=== PATIENT | female | born 2000 | race Caucasian/White ===

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

== ENCOUNTER 2018-12-04 17:35 | Emergency (ER) | payer SELFPAY ==
[~2018-12-04] VITALS: Ht 157.5 cm; Wt 72.6 kg
--- NOTE | 2018-12-04 17:57 | ED General ---
General Chief Complaint: Abdominal/GI Problems Stated Complaint: N/V/D Nursing Triage Note: pt presents with c/o n/v/d x 2 days. pt works at [employer] and reports working with pts who have had the stomach flu. pt hasn't been able to keep anything down since saturday evening. Nursing Sepsis Screen: No Definite Risk Source of Information: Patient Exam Limitations: No Limitations History of Present Illness Date Seen by Provider: Dec 04, 2018 Time Seen by Provider: 17:57 Initial Comments To ER per private vehicle with reports of nausea vomiting diarrhea body aches cough and rhinorrhea since last night. No fevers she has had chills. Timing/Duration: 1-2 Days Severity: Moderate Modifying Factors: improves with Medication Allergies and Home Medications Allergies Coded Allergies: No Known Drug Allergies (Unverified , 11/16/10) Home Medications Ibuprofen 600 Mg Tablet, 600 MG PO Q6H Prescribed by: MALIKA JOSEPH on 11/15/17 1415 Ondansetron 8 Mg Tab.rapdis, 8 MG PO Q6H PRN for NAUSEA/VOMITING Prescribed by: ADRIANA LYNNE on 12/04/18 1830 Vit #76/Iron,Carb/FA 1 Each Tablet, 1 EACH PO DAILY, (Reported) Patient Home Medication List Home Medication List Reviewed: Yes Review of Systems Review of Systems Constitutional: see HPI, chills, malaise EENTM: nose congestion Respiratory: see HPI, cough Cardiovascular: no symptoms reported Gastrointestinal: diarrhea, nausea, vomiting Genitourinary: no symptoms reported Musculoskeletal: no symptoms reported Skin: no symptoms reported Psychiatric/Neurological: No Symptoms Reported Hematologic/Lymphatic: No Symptoms Reported Past Zmouqwi-Ltzmju-Nfuvwo Hx Patient Social History Alcohol Use: Denies Use Recreational Drug Use: No Smoking Status: Current Everyday Smoker Type Used: Cigarettes Recent Foreign Travel: No Contact w/Someone Who Travel: No Recent Infectious Disease Expo: Yes Recent Hopitalizations: No Immunizations Up To Date Tetanus Booster (TDap): Less than 5yrs PED Vaccines UTD: Yes Date of Influenza Vaccine: Aug 28, 2017 Seasonal Allergies Seasonal Allergies: No Past Medical History Surgeries: No Respiratory: No Cardiac: No Neurological: No Reproductive Disorders: Yes (menstrual problems) Female 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 Sexually Transmitted Disease: No HIV/AIDS: No Genitourinary: No UTI (peds) Gastrointestinal: No Musculoskeletal: No Endocrine: No HEENT: No Cancer: No Psychosocial: Yes Anxiety, Depression Integumentary: No Blood Disorders: No Adverse Reaction/Blood Tranf: No Family Medical History Cancer of mouth 19 MOTHER (CERVICAL CANCER, RETINAL BLASTOMA) FH: ADHD (attention deficit hyperactivity disorder) G8 SISTER Hypercholesterolemia G8 BROTHER Hypertension G8 BROTHER No Pertinent Family Hx Physical Exam Vital Signs Vital Signs - First Documented 12/04/18 17:44 Temp 97.9 Pulse 84 Resp 18 B/P (MAP) 119/69 (86) Pulse Ox 98 O2 Delivery Room Air Capillary Refill : Less Than 3 Seconds Height, Weight, BMI Height: 5'2.00" Weight: 160lbs. 0.0oz. [id number]; 37.0 BMI Method:Stated General Appearance: No Apparent Distress, WD/WN Eyes: Bilateral Eye Normal Inspection, Bilateral Eye PERRL, Bilateral Eye EOMI HEENT: PERRL/EOMI, TMs Normal Neck: Full Range of Motion, Normal Inspection Respiratory: Normal Breath Sounds, No Accessory Muscle Use, No Respiratory Distress Cardiovascular: Regular Rate, Rhythm, Normal Peripheral Pulses Gastrointestinal: Normal Bowel Sounds, Non Tender, Soft Extremity: Normal Capillary Refill, Normal Inspection Neurologic/Psychiatric: Alert, Oriented x3 Skin: Normal Color, Warm/Dry Progress/Results/Core Measures Suspected Sepsis Recent Fever Within 48 Hours: No Infection Criteria Present: Suspected New Infection New/Unexplained Altered Menta: No Sepsis Screen: No Definite Risk SIRS Temperature:97.9 Pulse: 84 Respiratory Rate: 18 Laboratory Tests 12/04/18 18:00: White Blood Count 11.9H Blood Pressure 119 /69 Mean: 86 Laboratory Tests 12/04/18 18:00: Creatinine 0.83, Platelet Count 229, Total Bilirubin 0.4 Results/Orders Lab Results Laboratory Tests Test 12/04/18 18:00 12/04/18 18:05 Range/Units White Blood Count 11.9 H 4.3-11.0 10^3/uL Red Blood Count 4.75 4.35-5.85 10^6/uL Hemoglobin 13.8 11.5-16.0 G/DL Hematocrit 41 35-52 % Mean Corpuscular Volume 87 80-99 FL Mean Corpuscular Hemoglobin 29 25-34 PG Mean Corpuscular Hemoglobin Concent 34 32-36 G/DL Red Cell Distribution Width 14.7 H 10.0-14.5 % Platelet Count 229 130-400 10^3/uL Mean Platelet Volume 12.3 H 7.4-10.4 FL Neutrophils (%) (Auto) 72 42-75 % Lymphocytes (%) (Auto) 20 12-44 % Monocytes (%) (Auto) 6 0-12 % Eosinophils (%) (Auto) 2 0-10 % Basophils (%) (Auto) 0 0-10 % Neutrophils # (Auto) 8.5 H 1.8-7.8 X 10^3 Lymphocytes # (Auto) 2.4 1.0-4.0 X 10^3 Monocytes # (Auto) 0.7 0.0-1.0 X 10^3 Eosinophils # (Auto) 0.2 0.0-0.3 10^3/uL Basophils # (Auto) 0.0 0.0-0.1 10^3/uL Sodium Level 141 135-145 MMOL/L Potassium Level 4.0 3.6-5.0 MMOL/L Chloride Level 108 H 98-107 MMOL/L Carbon Dioxide Level 21 21-32 MMOL/L Anion Gap 12 5-14 MMOL/L Blood Urea Nitrogen 11 7-18 MG/DL Creatinine 0.83 0.60-1.30 MG/DL Estimat Glomerular Filtration Rate > 60 BUN/Creatinine Ratio 13 Glucose Level 86 70-105 MG/DL Calcium Level 9.4 8.5-10.1 MG/DL Corrected Calcium 9.2 8.5-10.1 MG/DL Total Bilirubin 0.4 0.1-1.0 MG/DL Aspartate Amino Transf (AST/SGOT) 22 5-34 U/L Alanine Aminotransferase (ALT/SGPT) 24 0-55 U/L Alkaline Phosphatase 92 40-136 U/L Total Protein 7.2 6.4-8.2 GM/DL Albumin 4.3 3.2-4.5 GM/DL Lipase 29 8-78 U/L Serum Test, Qualitative NEGATIVE NEGATIVE Urine Color YELLOW Urine Clarity CLEAR Urine pH 7 5-9 Urine Specific [place] 1.010 L 1.016-1.022 Urine Protein 1+ H NEGATIVE Urine Glucose (UA) NEGATIVE NEGATIVE Urine Ketones NEGATIVE NEGATIVE Urine Nitrite NEGATIVE NEGATIVE Urine Bilirubin NEGATIVE NEGATIVE Urine Urobilinogen NORMAL NORMAL MG/DL Urine Leukocyte Esterase 2+ H NEGATIVE Urine RBC (Auto) NEGATIVE NEGATIVE Urine RBC NONE /HPF Urine WBC 2-5 /HPF Urine Squamous Epithelial Cells 10-25 H /HPF Urine Crystals NONE /LPF Urine Bacteria MODERATE H /HPF Urine Casts NONE /LPF Urine Mucus MODERATE H /LPF Urine Culture Indicated YES Micro Results Microbiology 12/04/18 Influenza Types A,B Antigen ([facility]) - Final, Complete My Orders Orders - ADRIANA LYNNE DEV MANAGER Cbc With Automated Diff (12/04/18 17:55) Comprehensive Metabolic Panel (12/04/18 17:55) Lipase (12/04/18 17:55) Ua Culture If Indicated (12/04/18 17:55) Hcg,Qualitative Serum (12/04/18 17:55) Iv Heplock-Insert (Order) (12/04/18 17:55) Ondansetron Injection (Zofran Injectio (12/04/18 18:00) Hyoscyamine Sl Tablet (Levsin Sl Tablet) (12/04/18 18:00) Lactated Ringers (Lr 1000 Ml Iv Solution (12/04/18 18:00) Influenza A And B Antigens (12/04/18 17:56) Urine Culture (12/04/18 18:05) Medications Given in ED Current Medications Medications Dose Ordered Sig/Riya Route Start Time Stop Time Status Last Admin Dose Admin Hyoscyamine Sulfate 0.25 mg ONCE ONCE PO 12/04/18 18:00 12/04/18 18:01 DC 12/04/18 18:07 0.25 MG Ondansetron HCl 8 mg ONCE ONCE IVP 12/04/18 18:00 12/04/18 18:01 DC 12/04/18 18:11 8 MG Vital Signs/I&O 12/04/18 12/04/18 17:44 19:00 Temp 97.9 97.9 Pulse 84 82 Resp 18 18 B/P (MAP) 119/69 (86) 107/62 (77) Pulse Ox 98 98 O2 Delivery Room Air Room Air Capillary Refill : Less Than 3 Seconds Blood Pressure Mean: 86 Departure Impression Primary Impression: Viral syndrome Disposition: 01 HOME, SELF-CARE Condition: Stable Departure-Patient Inst. Decision time for Depature: 18:28 Referrals: MALIKA JOSEPH MD (PCP/Family) Primary Care Physician Patient Instructions: VIRAL SYNDROME Add. Discharge Instructions: All discharge instructions reviewed with patient and/or family. Voiced understanding. 1. Return to ER for any concerns or worsening 2. Clear liquids only for the next 24 hours. Nausea medication as directed. You may use [id number] Imodium to help control diarrhea. Follow-up with your doctor within 48 hours for recheck. Scripts Ondansetron (Ondansetron Odt) 8 Mg Tab.rapdis 8 MG PO Q6H PRN for NAUSEA/VOMITING, #14 TAB Prov: ADRIANA LYNNE APRN 12/04/18 Work/School Note: Work Release Form Date Seen in the Emergency Department: Dec 04, 2018 Return to Work: Dec 06, 2018 ADRIANA LYNNE APRN Dec 04, 2018 17:57
[2018-12-04] MEDS ORDERED: HYOSCYAMINE 0.125 MG (LEVSIN) TAB PO ONE (18:00)
[2018-12-04] MEDS ORDERED: ONDANSETRON 4 MG/2 ML (SDV) Z0FRAN IVP ONE (18:00)
[2018-12-04] MEDS ORDERED: LACTATED RINGERS 1,000 ML IV SCH (18:00)
[2018-12-04 18:05] LABS: BASOPHILS % (AUTO) 0 % (0-10); EOSINOPHILS # (AUTO) 0.2 10^3/uL (0.0-0.3); EOSINOPHILS % (AUTO) 2 % (0-10); HEMATOCRIT 41 % (35-52); HEMOGLOBIN 13.8 G/DL (11.5-16.0); LYMPHOCYTES # (AUTO) 2.4 X 10^3 (1.0-4.0); LYMPHOCYTES % (AUTO) 20 % (12-44); MEAN CORPUSCULAR HEMOGLOBIN 29 PG (25-34); MEAN CORPUSCULAR HGB CONC 34 G/DL (32-36); MEAN CORPUSCULAR VOLUME 87 FL (80-99); MEAN PLATELET VOLUME 12.3 FL (7.4-10.4); MONOCYTES # (AUTO) 0.7 X 10^3 (0.0-1.0); MONOCYTES % (AUTO) 6 % (0-12); NEUTROPHILS # (AUTO) 8.5 X 10^3 (1.8-7.8); NEUTROPHILS % (AUTO) 72 % (42-75); PLATELET COUNT 229 10^3/uL (130-400); RED CELL DISTRIBUTION WIDTH 14.7 % (10.0-14.5); WHITE BLOOD COUNT 11.9 10^3/uL (4.3-11.0)
[2018-12-04 18:14] LABS: BILIRUBIN,URINE NEGATIVE (NEGATIVE); CLARITY,URINE CLEAR; COLOR,URINE YELLOW; GLUCOSE, URINE (UA) NEGATIVE (NEGATIVE); KETONES,URINE NEGATIVE (NEGATIVE); LEUKOCYTE ESTERASE ,URINE 2+ (NEGATIVE); NITRITE,URINE NEGATIVE (NEGATIVE); PH,URINE 7 (5-9); PROTEIN,URINE 1+ (NEGATIVE); UROBILINOGEN,URINE NORMAL (NORMAL)
[2018-12-04 18:25] LABS: ALANINE AMINOTRANSFERASE 24 U/L (0-55); ALBUMIN 4.3 GM/DL (3.2-4.5); ALKALINE PHOSPHATASE 92 U/L (40-136); BILIRUBIN,TOTAL 0.4 MG/DL (0.1-1.0); BUN/CREATININE RATIO 13; CALCIUM 9.4 MG/DL (8.5-10.1); CARBON DIOXIDE 21 MMOL/L (21-32); CHLORIDE 108 MMOL/L (98-107); CREATININE SERUM 0.83 MG/DL (0.60-1.30); GFR ESTIMATED > 60; GLUCOSE 86 MG/DL (70-105); LIPASE 29 U/L (8-78); SODIUM 141 MMOL/L (135-145); TOTAL PROTEIN 7.2 GM/DL (6.4-8.2)
[2018-12-04 18:29] LABS: BACTERIA,URINE MODERATE /HPF
[2018-12-04] MEDS ORDERED: ONDA8TAB13 PO (18:30)
[2018-12-04 19:00] VITALS: BP 107/62
== END 2018-12-04 19:00 | disposition home or self-care (01) ==
LOC: EDUNIT# 17:35 → ER 17:36
DX: B34.9 Viral infection, unspecified (principal); F41.9 Anxiety disorder, unspecified; F32.9 Major depressive disorder, single episode, unspecified; F17.210 Nicotine dependence, cigarettes, uncomplicated; Z97.5 Presence of (intrauterine) contraceptive device; Z80.49 Family history of malignant neoplasm of other genital organs; Z82.49 Family history of ischemic heart disease and other diseases of the circulatory system; Z87.440 Personal history of urinary (tract) infections
CPT/HCPCS: 36415; 80053; 81000; 83690; 84703; 85025; 87088; 87804

== ENCOUNTER 2020-01-14 12:31 | Emergency (ER) | payer SELFPAY ==
[~2020-01-14] VITALS: Ht 155 cm; Wt 77.2 kg
[~2020-01-14 12:31] MED LIST changes: +ONDA8TAB13 PO
[2020-01-14] MEDS ORDERED: ONDANSETRON 4 MG (ZOFRAN) ORAL DISSOLVE TAB PO STA (12:51)
--- NOTE | 2020-01-14 12:54 | ED Cough/URI ---
General Chief Complaint: Cough/Cold/Flu Symptoms Stated Complaint: SOA;HEAD PAIN;COUGH Nursing Triage Note: having SOB and cough, nauseated, headache Sepsis Screen: No Definite Risk Source: patient Exam Limitations: no limitations History of Present Illness Date Seen by Provider: Jan 14, 2020 Time Seen by Provider: 12:53 Initial Comments To ER with shortness of breath and cough nausea and headaches that began 2 days ago. No fevers have been measured. She is afebrile here despite no use of antipyretics today. Her last dose was ibuprofen and that was yesterday. She did travel to [facility] 4 days ago. Timing/Duration: constant Severity/Quality: moderate Associated Symptoms: cough Allergies and Home Medications Allergies Coded Allergies: No Known Drug Allergies (Unverified , 11/16/10) Home Medications Ibuprofen 600 Mg Tablet, 600 MG PO Q6H Prescribed by: MALIKA JOSEPH on 11/15/17 1415 Ondansetron 8 Mg Tab.rapdis, 8 MG PO Q6H PRN for NAUSEA/VOMITING Prescribed by: ADRIANA LYNNE on 12/04/18 1830 Vit #76/Iron,Carb/FA 1 Each Tablet, 1 EACH PO DAILY, (Reported) Patient Home Medication List Home Medication List Reviewed: Yes Review of Systems Review of Systems Constitutional: see HPI; No fever EENTM: see HPI Respiratory: see HPI, cough Cardiovascular: no symptoms reported Gastrointestinal: nausea Genitourinary: no symptoms reported Psychiatric/Neurological: See HPI, Headache Hematologic/Lymphatic: No Symptoms Reported Past Ikgourt-Yfeaut-Lqumkh Hx Patient Social History Alcohol Use: Denies Use Recreational Drug Use: No Smoking Status: Current Everyday Smoker Type Used: Cigarettes 2nd Hand Smoke Exposure: Yes Recent Foreign Travel: No Contact w/Someone Who Travel: No Recent Infectious Disease Expo: No Recent Hopitalizations: No Immunizations Up To Date Tetanus Booster (TDap): Less than 5yrs PED Vaccines UTD: Yes Date of Influenza Vaccine: Aug 28, 2017 Seasonal Allergies Seasonal Allergies: No Past Medical History Surgeries: No Respiratory: No Cardiac: No Neurological: No Reproductive Disorders: Yes (menstrual problems) Female 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 Sexually Transmitted Disease: No HIV/AIDS: No Genitourinary: No UTI (peds) Gastrointestinal: No Musculoskeletal: No Endocrine: No HEENT: No Cancer: No Psychosocial: Yes Anxiety, Depression Integumentary: No Blood Disorders: No Adverse Reaction/Blood Tranf: No Family Medical History Cancer of mouth 19 MOTHER (CERVICAL CANCER, RETINAL BLASTOMA) FH: ADHD (attention deficit hyperactivity disorder) G8 SISTER Hypercholesterolemia G8 BROTHER Hypertension G8 BROTHER No Pertinent Family Hx Physical Exam Vital Signs - First Documented 01/14/20 12:38 Temp 36.7 Pulse 96 Resp 18 B/P (MAP) 112/70 (84) Capillary Refill : Less Than 3 Seconds Height: 5'2.00" Weight: 160lbs. 0.0oz. 72.588154en; 32.00 BMI Method:Stated General Appearance: WD/WN, no apparent distress Eyes: Bilateral Eye Normal Inspection, Bilateral Eye PERRL, Bilateral Eye EOMI HEENT: PERRL/EOMI, normal ENT inspection Neck: non-tender, full range of motion Respiratory: normal breath sounds, no respiratory distress, no accessory muscle use; No wheezing, No expiration Gastrointestinal: normal bowel sounds, non tender, soft Neurologic/Psychiatric: alert, normal mood/affect, oriented x 3 Skin: normal color, warm/dry Progress/Results/Core Measures Suspected Sepsis Recent Fever Within 48 Hours: No Infection Criteria Present: None New/Unexplained Altered Menta: No Sepsis Screen: No Definite Risk SIRS Temperature: Pulse: 96 Respiratory Rate: 18 Blood Pressure 112 /70 Mean: 84 Results/Orders Lab Results Laboratory Tests Test 01/14/20 13:03 Range/Units Group A Streptococcus Screen NEGATIVE NEGATIVE Micro Results Microbiology 01/14/20 Influenza Types A,B Antigen ([facility]) - Final, Complete My Orders Orders - ADRIANA LYNNE APRN Influenza A And B Antigens (01/14/20 12:51) Rapid Strep A Screen (01/14/20 12:51) Butalbital/Apap/Caffeine Tab (Fioricet T (01/14/20 13:00) Ondansetron Oral Dissolve Tab (Zofran (01/14/20 12:51) Medications Given in ED Current Medications Medications Dose Ordered Sig/Riya Route Start Time Stop Time Status Last Admin Dose Admin Acetaminophen/ Butalbital/ Caffeine 1 tab ONCE PRN PO 01/14/20 13:00 01/14/20 13:04 1 TAB Vital Signs/I&O 01/14/20 12:38 Temp 36.7 Pulse 96 Resp 18 B/P (MAP) 112/70 (84) Capillary Refill : Less Than 3 Seconds Blood Pressure Mean: 84 Departure Communication (Admissions) She does not have a fever despite no use of antipyretics. Impression Primary Impression: Viral syndrome Additional Impression: Headache Qualified Codes: R51 - Headache Disposition: 01 HOME, SELF-CARE Condition: Stable Departure-Patient Inst. Decision time for Depature: 13:21 Referrals: MALIKA JOSEPH MD (PCP/Family) Primary Care Physician Patient Instructions: VIRAL SYNDROME Add. Discharge Instructions: 1. Tylenol for either control 2. You should go home and quarantine AT HOME for 14 days away from others. All discharge instructions reviewed with patient and/or family. Voiced understanding. Work/School Note: Work Release Form Date Seen in the Emergency Department: Jan 14, 2020 Return to Work: Jan 26, 2020 ADRIANA LYNNE APRN Jan 14, 2020 12:54
[2020-01-14] MEDS ORDERED: ACET/BUTAL/CAFF (FIORICET) TAB PO PRN (13:00)
[2020-01-14 13:44] VITALS: BP 114/71
== END 2020-01-14 13:44 | disposition home or self-care (01) ==
LOC: EDUNIT# 12:31 → ER 12:32
DX: B34.9 Viral infection, unspecified (principal); R51 Headache; F17.210 Nicotine dependence, cigarettes, uncomplicated; Z82.49 Family history of ischemic heart disease and other diseases of the circulatory system; Z80.0 Family history of malignant neoplasm of digestive organs
CPT/HCPCS: 87430; 87804

== ENCOUNTER 2020-02-20 20:03 | Emergency (ER) | payer SELFPAY ==
[~2020-02-20] VITALS: Ht 157 cm; Wt 78.0 kg
[2020-02-20] MEDS ORDERED: ONDANSETRON 4 MG/2 ML (SDV) Z0FRAN IVP ONE ×2 (20:15→20:45)
[2020-02-20] MEDS ORDERED: NS IV 1000 ML 1,000 ML IV STA (20:35)
[2020-02-20 20:36] LABS: BILIRUBIN,URINE NEGATIVE (NEGATIVE); CLARITY,URINE CLOUDY; COLOR,URINE YELLOW; GLUCOSE, URINE (UA) NEGATIVE (NEGATIVE); KETONES,URINE NEGATIVE (NEGATIVE); LEUKOCYTE ESTERASE ,URINE TRACE (NEGATIVE); NITRITE,URINE NEGATIVE (NEGATIVE); PROTEIN,URINE NEGATIVE (NEGATIVE)
--- NOTE | 2020-02-20 20:40 | ED Abdominal Pain ---
General Stated Complaint: PUKING, BODY ACHES, HEADACHE AND CHILLS Source of Information: Patient Exam Limitations: No Limitations History of Present Illness Date Seen by Provider: Feb 20, 2020 Time Seen by Provider: 20:30 Initial Comments 19-year-old female presents with nausea, vomiting, body ache, chills, headache, periumbilical pain. Slight cough. Patient reports that her symptoms started this morning with nausea and vomiting. She reports that she's been unable to keep anything down at all today. Patient has pain in the periumbilical region that started later today. She denies any right lower or left lower quadrant pain. She denies any urinary symptoms. She reports her last bowel movement was normal today. She denies diarrhea. She denies fever. Allergies and Home Medications Allergies Coded Allergies: No Known Drug Allergies (Unverified , 11/16/10) Home Medications Ibuprofen 600 Mg Tablet, 600 MG PO Q6H Prescribed by: MALIKA JOSEPH on 11/15/17 1415 Ondansetron 8 Mg Tab.rapdis, 8 MG PO Q6H PRN for NAUSEA/VOMITING Prescribed by: ADRIANA LYNNE on 12/04/18 1830 Vit #76/Iron,Carb/FA 1 Each Tablet, 1 EACH PO DAILY, (Reported) Patient Home Medication List Home Medication List Reviewed: Yes Review of Systems Review of Systems Constitutional: chills; No fever Respiratory: Cough Cardiovascular: Denies Chest Pain Gastrointestinal: Abdominal Pain, Nausea, Vomiting Musculoskeletal: no symptoms reported Skin: no symptoms reported Past Lvzekpk-Kgwpvx-Gbarmb Hx Past Med/Social Hx: Reviewed Nursing Past Med/Soc Hx Patient Social History Type Used: Cigarettes 2nd Hand Smoke Exposure: Yes Recent Hopitalizations: No Immunizations Up To Date Tetanus Booster (TDap): Less than 5yrs PED Vaccines UTD: Yes Date of Influenza Vaccine: Aug 28, 2017 Seasonal Allergies Seasonal Allergies: No Past Medical History Surgeries: No Respiratory: No Cardiac: No Neurological: No Reproductive Disorders: Yes (menstrual problems) Female 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 Sexually Transmitted Disease: No HIV/AIDS: No Genitourinary: No UTI (peds) Gastrointestinal: No Musculoskeletal: No Endocrine: No HEENT: No Cancer: No Psychosocial: Yes Anxiety, Depression Integumentary: No Blood Disorders: No Adverse Reaction/Blood Tranf: No Family Medical History Cancer of mouth 19 MOTHER (CERVICAL CANCER, RETINAL BLASTOMA) FH: ADHD (attention deficit hyperactivity disorder) G8 SISTER Hypercholesterolemia G8 BROTHER Hypertension G8 BROTHER No Pertinent Family Hx Physical Exam Vital Signs Vital Signs - First Documented 02/20/20 20:27 Temp 36.4 Pulse 82 Resp 18 B/P (MAP) 138/68 (91) O2 Delivery Room Air Capillary Refill : Height/Weight/BMI Height: 5'2.00" Weight: 160lbs. 0.0oz. 72.751008kp; 32.00 BMI Method:Stated General Appearance: WD/WN, no apparent distress HEENT: normal ENT inspection Neck: full range of motion, supple Respiratory: chest non-tender, lungs clear, normal breath sounds Cardiovascular: normal peripheral pulses, regular rate, rhythm Gastrointestinal: soft; No distended; tenderness (periumbilical) Extremities: non-tender Back: normal inspection Neurologic/Psychiatric: alert, normal mood/affect, oriented x 3 Skin: normal color, warm/dry Lymphatic: no adenopathy Progress/Results/Core Measures Results/Orders Lab Results Laboratory Tests Test 02/20/20 20:28 02/20/20 20:37 Range/Units Urine Color YELLOW Urine Clarity CLOUDY Urine pH 7.0 5-9 Urine Specific [place] 1.015 L 1.016-1.022 Urine Protein NEGATIVE NEGATIVE Urine Glucose (UA) NEGATIVE NEGATIVE Urine Ketones NEGATIVE NEGATIVE Urine Nitrite NEGATIVE NEGATIVE Urine Bilirubin NEGATIVE NEGATIVE Urine Urobilinogen 0.2 < = 1.0 MG/DL Urine Leukocyte Esterase TRACE H NEGATIVE Urine RBC (Auto) NEGATIVE NEGATIVE Urine RBC 0-2 /HPF Urine WBC 2-5 /HPF Urine Squamous Epithelial Cells 10-25 H /HPF Urine Crystals PRESENT H /LPF Urine Amorphous Sediment MOD MICHEAL PHOSPHATE H /LPF Urine Bacteria TRACE /HPF Urine Casts NONE /LPF Urine Mucus SMALL H /LPF Urine Culture Indicated NO White Blood Count 9.2 4.3-11.0 10^3/uL Red Blood Count 4.29 L 4.35-5.85 10^6/uL Hemoglobin 12.7 11.5-16.0 G/DL Hematocrit 38 35-52 % Mean Corpuscular Volume 88 80-99 FL Mean Corpuscular Hemoglobin 30 25-34 PG Mean Corpuscular Hemoglobin Concent 34 32-36 G/DL Red Cell Distribution Width 13.8 10.0-14.5 % Platelet Count 210 130-400 10^3/uL Mean Platelet Volume 12.6 H 7.4-10.4 FL Neutrophils (%) (Auto) 52 42-75 % Lymphocytes (%) (Auto) 36 12-44 % Monocytes (%) (Auto) 8 0-12 % Eosinophils (%) (Auto) 5 0-10 % Basophils (%) (Auto) 0 0-10 % Neutrophils # (Auto) 4.7 1.8-7.8 X 10^3 Lymphocytes # (Auto) 3.3 1.0-4.0 X 10^3 Monocytes # (Auto) 0.7 0.0-1.0 X 10^3 Eosinophils # (Auto) 0.4 H 0.0-0.3 10^3/uL Basophils # (Auto) 0.0 0.0-0.1 10^3/uL Sodium Level 141 135-145 MMOL/L Potassium Level 3.8 3.6-5.0 MMOL/L Chloride Level 108 H 98-107 MMOL/L Carbon Dioxide Level 22 21-32 MMOL/L Anion Gap 11 5-14 MMOL/L Blood Urea Nitrogen 7 7-18 MG/DL Creatinine 0.83 0.60-1.30 MG/DL Estimat Glomerular Filtration Rate > 60 BUN/Creatinine Ratio 8 Glucose Level 84 70-105 MG/DL Calcium Level 9.4 8.5-10.1 MG/DL Corrected Calcium 9.4 8.5-10.1 MG/DL Total Bilirubin 0.3 0.1-1.0 MG/DL Aspartate Amino Transf (AST/SGOT) 32 5-34 U/L Alanine Aminotransferase (ALT/SGPT) 51 0-55 U/L Alkaline Phosphatase 88 40-136 U/L C-Reactive Protein High Sensitivity 0.53 H 0.00-0.50 MG/DL Total Protein 7.0 6.4-8.2 GM/DL Albumin 4.0 3.2-4.5 GM/DL Lipase 29 8-78 U/L Serum Test, Qualitative NEGATIVE NEGATIVE My Orders Orders - STRICKLAND,YOLA L DO Hs C Reactive Protein (02/20/20 20:35) Lipase (02/20/20 20:35) Ondansetron Injection (Zofran Injectio (02/20/20 20:45) Ns Iv 1000 Ml (Sodium Chloride 0.9%) (02/20/20 20:35) Ed Iv/Invasive Line Start (02/20/20 20:35) Abdomen, Flat & Upright/Decub (02/20/20 20:35) Medications Given in ED Current Medications Medications Dose Ordered Sig/Riya Route Start Time Stop Time Status Last Admin Dose Admin Ondansetron HCl 8 mg ONCE ONCE IVP 02/20/20 20:15 02/20/20 20:16 DC 02/20/20 20:39 8 MG Vital Signs/I&O 02/20/20 20:27 Temp 36.4 Pulse 82 Resp 18 B/P (MAP) 138/68 (91) O2 Delivery Room Air Progress Progress Note : Time: 22:00 Progress Note Patient with no further episodes of vomiting while in the ER. Reviewed x-ray labs. There are no acute findings. Patient likely with a viral illness. He'll prescribe her some Zofran and she can return to work on Saturday. She should return to the ER as needed. Diagnostic Imaging Comments [place] NAME: DONNA MOODY [facility] REC#: [id number] PT STATUS: REG ER : 2000 PHYSICIAN: YOLA STRICKLAND DO ADMIT DATE: 02/20/20/ER Draft Date of Exam:02/20/20 ABDOMEN, FLAT & UPRIGHT/DECUB INDICATION: Nausea and vomiting. Abdominal pain. COMPARISON: None. EXAMINATION: Supine and upright views the abdomen were obtained. FINDINGS: Nonobstructive small bowel gas pattern. Mild amount of air and stool are seen scattered throughout the colon. No abnormal air-fluid levels or large collection of free intraperitoneal air is seen. No abnormal extraosseous calcification or radiopaque foreign body is identified. Bony structures are age-appropriate. IMPRESSION: Nonobstructive small bowel gas uriel Departure Impression Primary Impression: Viral syndrome Disposition: 01 HOME, SELF-CARE Condition: Stable Departure-Patient Inst. Referrals: MALIKA JOSEPH MD (PCP/Family) Primary Care Physician Patient Instructions: VIRAL SYNDROME Add. Discharge Instructions: Emergency department focuses on treating and ruling out life-threatening diseases. Whenever possible, a diagnosis is given. However, most patients are given an impression based on their history, physical exam, and workup during your brief time in the ER. Information about probable diagnosis and other educational material has been provided. Please take the time to read and unders tand this information. It is very important that you follow up with a physician as discussed during the visit today. Failure to adhere to your follow-up instructions may lead to severe disability, injury, or so please make sure to keep your appointments or obtain one as requested. Please keep in mind the emergency department is not designed to your primary care or "family doctor" and nonurgent issues are best evaluated by an outpatient physician Scripts Ondansetron (Ondansetron Odt) 4 Mg Tab.rapdis 4 MG PO Q6H PRN for NAUSEA/VOMITING, #20 TAB 0 Refills Prov: YOLA STRICKLAND DO 02/20/20 Work/School Note: Work Release Form Date Seen in the Emergency Department: Feb 20, 2020 Return to Work: Feb 22, 2020 YOLA STRICKLAND DO Feb 20, 2020 20:40
[2020-02-20 20:57] LABS: BASOPHILS % (AUTO) 0 % (0-10); EOSINOPHILS # (AUTO) 0.4 10^3/uL (0.0-0.3); EOSINOPHILS % (AUTO) 5 % (0-10); HEMATOCRIT 38 % (35-52); HEMOGLOBIN 12.7 G/DL (11.5-16.0); LYMPHOCYTES # (AUTO) 3.3 X 10^3 (1.0-4.0); LYMPHOCYTES % (AUTO) 36 % (12-44); MEAN CORPUSCULAR HEMOGLOBIN 30 PG (25-34); MEAN CORPUSCULAR HGB CONC 34 G/DL (32-36); MEAN CORPUSCULAR VOLUME 88 FL (80-99); MEAN PLATELET VOLUME 12.6 FL (7.4-10.4); MONOCYTES # (AUTO) 0.7 X 10^3 (0.0-1.0); MONOCYTES % (AUTO) 8 % (0-12); NEUTROPHILS # (AUTO) 4.7 X 10^3 (1.8-7.8); NEUTROPHILS % (AUTO) 52 % (42-75); PLATELET COUNT 210 10^3/uL (130-400); RED CELL DISTRIBUTION WIDTH 13.8 % (10.0-14.5); WHITE BLOOD COUNT 9.2 10^3/uL (4.3-11.0)
[2020-02-20 21:02] LABS: RBC,URINE 0-2 /HPF
[2020-02-20 21:03] LABS: AMORPHOUS SEDIMENT,UR MOD AMOR PHOSPHATE /LPF; BACTERIA,URINE TRACE /HPF
[2020-02-20 21:13] LABS: CALCIUM 9.4 MG/DL (8.5-10.1)
[2020-02-20 21:14] LABS: GLUCOSE 84 MG/DL (70-105)
[2020-02-20 21:15] LABS: BILIRUBIN,TOTAL 0.3 MG/DL (0.1-1.0); CARBON DIOXIDE 22 MMOL/L (21-32)
[2020-02-20 21:17] LABS: ALKALINE PHOSPHATASE 88 U/L (40-136); CREATININE SERUM 0.83 MG/DL (0.60-1.30); GFR ESTIMATED > 60
[2020-02-20 21:18] LABS: BUN/CREATININE RATIO 8
[2020-02-20 21:20] LABS: ALANINE AMINOTRANSFERASE 51 U/L (0-55)
[2020-02-20 21:21] LABS: LIPASE 29 U/L (8-78)
--- NOTE | 2020-02-20 21:39 | Diagnostic Imaging Report ---
INDICATION: Nausea and vomiting. Abdominal pain. COMPARISON: None. EXAMINATION: Supine and upright views the abdomen were obtained. FINDINGS: Nonobstructive small bowel gas pattern. Mild amount of air and stool are seen scattered throughout the colon. No abnormal air-fluid levels or large collection of free intraperitoneal air is seen. No abnormal extraosseous calcification or radiopaque foreign body is identified. Bony structures are age-appropriate. IMPRESSION: Nonobstructive small bowel gas pattern. Dictated by: Dictated on workstation # [id number]
[2020-02-20 21:47] LABS: CHLORIDE 108 MMOL/L (98-107); POTASSIUM 3.8 MMOL/L (3.6-5.0); SODIUM 141 MMOL/L (135-145)
[2020-02-20] MEDS ORDERED: ONDA4TAB11 PO (22:01)
[2020-02-20 22:13] VITALS: BP 112/73
== END 2020-02-20 22:13 | disposition home or self-care (01) ==
LOC: EDUNIT# 20:03 → ER 20:05
DX: B34.9 Viral infection, unspecified (principal); Z77.22 Contact with and (suspected) exposure to environmental tobacco smoke (acute) (chronic); Z82.49 Family history of ischemic heart disease and other diseases of the circulatory system; Z80.8 Family history of malignant neoplasm of other organs or systems
CPT/HCPCS: 36415; 74019; 80053; 81000; 83690; 84703; 85025; 86141

== ENCOUNTER 2022-05-19 21:00 | Outpatient (CLI) | payer MEDICAID ==
[~2022-05-19] VITALS: Ht 157.5 cm; Wt 82.1 kg
[~2022-05-19 21:00] MED LIST changes: +ESCI-2 PO; -ESCI10TA55 PO; +ONDA4TAB11 PO
[2022-05-19 21:18] VITALS: BP 118/56
[2022-05-19 21:41] LABS: BILIRUBIN,URINE NEGATIVE (NEGATIVE); CLARITY,URINE CLEAR; COLOR,URINE YELLOW; GLUCOSE, URINE (UA) NEGATIVE (NEGATIVE); KETONES,URINE 1+ (NEGATIVE); LEUKOCYTE ESTERASE ,URINE 2+ (NEGATIVE); NITRITE,URINE NEGATIVE (NEGATIVE); PROTEIN,URINE NEGATIVE (NEGATIVE)
[2022-05-19 21:45] VITALS: BP 118/56
[2022-05-19 21:48] LABS: BACTERIA,URINE LARGE /HPF; WBC,URINE 50-100 /HPF
[2022-05-19 22:22] VITALS: BP 116/62
[2022-05-19 22:45] VITALS: BP 116/62
--- NOTE | 2022-05-20 04:17 | Discharge Summary ---
Discharge Summary Hospital Course Problems Reviewed?: Yes Hospital Course Date of Admission: 05/19/2022 Admission Diagnosis : Cystitis Family Physician/Provider: Katherine Gomez MD Date of Discharge: 05/20/22 Discharge Diagnosis: [35 weeks cystitis no evidence of labor ] Hospital Course: [Discharged home with routine OB precautions, activity, diet and follow up early this week with her physician] Labs and Pending Lab Test: Laboratory Tests 05/19/22 21:15: Urine Color YELLOW, Urine Clarity CLEAR, Urine pH 6.0, Urine Specific [place] 1.020, Urine Protein NEGATIVE, Urine Glucose (UA) NEGATIVE, Urine Ketones 1+H, Urine Nitrite NEGATIVE, Urine Bilirubin NEGATIVE, Urine Urobilinogen 0.2, Urine Leukocyte Esterase 2+H, Urine RBC (Auto) NEGATIVE, Urine RBC NONE, Urine WBC 50- 100H, Urine Squamous Epithelial Cells 2-5, Urine Crystals NONE, Urine Bacteria LARGEH, Urine Casts NONE, Urine Mucus SMALLH, Urine Culture Indicated YES Home Meds Active Reported Pnv 29-1 Tablet ( Vit #76/Iron,Carb/FA) 1 Each Tablet 1 Each PO DAILY Patient Discharge Instructions See above Consults None Activity: Activity as Tolerated Driving Instructions: You May Drive NO SMOKING: NO SMOKING Discharge Physical Examination Allergies: Coded Allergies: No Known Drug Allergies (Unverified , 11/16/10) Vitals & I&Os Vital Signs Date Time Temp Pulse Resp B/P (MAP) Pulse Ox O2 Delivery O2 Flow Rate FiO2 05/19/22 22:45 37.3 96 20 116/62 100 Room Air Discharge Summary Date of Admission Date of Discharge Supervisory-Addendum Brief Verification & Attestation Participated in pt care: other Personally performed: other Care discussed with: other Procedures: n/a Patient discharged before being seen by RODO MUSTAFA MD May 20, 2022 04:17
== END 2022-05-19 22:45 ==
LOC: LDRP 21:00 → WSo 21:00
PROVIDERS: ATTEND Family Medicine
DX: Z34.90 Encounter for supervision of normal pregnancy, unspecified, unspecified trimester (principal); Z3A.00 Weeks of gestation of pregnancy not specified
CPT/HCPCS: 81000; 87088; G0463; 99213

== ENCOUNTER 2022-06-09 11:24 | Emergency (ER) | payer MEDICAID ==
[~2022-06-09] VITALS: Ht 157 cm; Wt 82.1 kg
[2022-06-09] MEDS ORDERED: AMOXICILLIN 500 MG (POLYMOX) CAP PO STA (11:44)
--- NOTE | 2022-06-09 11:52 | ED EENT ---
History of Present Illness General Chief Complaint: Dental Problems/Pain Stated Complaint: DENTAL PAIN/LEFT EARACHE Source: patient (JOSEFINA BOOGIE) History of Present Illness Date Seen by Provider: Jun 09, 2022 Time Seen by Provider: 11:47 Initial Comments This is a 22-year-old healthy female that presents to the emergency room for evaluation of left upper dental pain. She states it started a couple days ago and nothing specifically has made it better or worse. She does have a history of a broken tooth there but states it normally does not bother her. She has tried Tylenol without relief. Timing/Duration: gradual Severity: moderate (JOSEFINA BOOGIE) Allergies and Home Medications Allergies Coded Allergies: No Known Drug Allergies (Unverified , 11/16/10) Patient Home Medication List Home Medication List Reviewed: Yes (JOSEFINA BOOGIE) Amoxicillin (Amoxicillin) 500 Mg Tablet, 500 MG PO TID Prescribed by: Ed Boogie on 06/09/22 1155 Chlorhexidine Gluconate (Peridex) 0.12 % Mouthwash, 15 ML MM TID Prescribed by: Ed Boogie on 06/09/22 1155 Vit #76/Iron,Carb/FA (Pnv 29-1 Tablet) 1 Each Tablet, 1 EACH PO DAILY, (Reported) Entered as Reported by: LYNETTE MARSHALL on 08/26/17 5527 Review of Systems Review of Systems Constitutional: no symptoms reported Eyes: No Symptoms Reported Ears: No Symptoms Reported Nose: no symptoms reported Mouth: pain, swelling Throat: no symptoms reported Respiratory: no symptoms reported Cardiovascular: no symptoms reported (JOSEFINA BOOGIE) Past Rhntpfu-Ngtscy-Omatoz Hx Immunizations Up To Date Tetanus Booster (TDap): Less than 5yrs PED Vaccines UTD: Yes (JOSEFINA BOOGIE) Seasonal Allergies Seasonal Allergies: No (JOSEFNIA BOOGIE) Past Medical History Surgeries: Yes (CAPS ON TEETH) Respiratory: No Cardiac: No Neurological: Yes Meningitis Reproductive Disorders: Yes (menstrual problems) Female Reproductive Disorders: Denies 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 Sexually Transmitted Disease: No HIV/AIDS: No Genitourinary: No UTI (peds) Gastrointestinal: No Musculoskeletal: No Endocrine: No HEENT: No Cancer: No Psychosocial: Yes Anxiety, Depression Integumentary: No Blood Disorders: No Adverse Reaction/Blood Tranf: No (JOSEFINA BOOGIE) Family Medical History Cancer of mouth 19 MOTHER (CERVICAL CANCER, RETINAL BLASTOMA) FH: ADHD (attention deficit hyperactivity disorder) G8 SISTER Hypercholesterolemia G8 BROTHER Hypertension G8 BROTHER No Pertinent Family Hx (JOSEFINA BOOGIE) Physical Exam Vital Signs Vital Signs - First Documented 06/09/22 11:30 Temp 36.6 Pulse 86 Resp 18 B/P (MAP) 132/79 (96) Pulse Ox 98 O2 Delivery Room Air (DARRELL SERRATO MD) Height, Weight, BMI Height: 5'2.00" Weight: 160lbs. 0.0oz. 72.459341mj; 33.09 BMI Method:Stated General Appearance: WD/WN, no apparent distress Eyes: bilateral eye normal inspection, bilateral eye PERRL, bilateral eye EOMI Ears: bilateral ear auricle normal, bilateral ear canal normal, bilateral ear TM normal Mouth/Throat: dental tenderness (Left upper molar is fractured and there is moderate tenderness to palpation around it. 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 There is a fractured teeth which is likely infected but no evidence or suspicion of a periapical abscess or facial cellulitis. Patient will be treated symptomatically and also with antibiotics. She will follow-up with her dentist as needed. (JOSEFINA BOOGIE) Impression Primary Impression: Dental caries Additional Impression: Pain due to dental caries Disposition: 01 HOME, SELF-CARE Condition: Stable Departure-Patient Inst. Decision time for Depature: 11:53 (JOSEFINA BOOGIE) Referrals: MALIKA JOSEPH MD (PCP/Family) Primary Care Physician Patient Instructions: Fractured Tooth (DC), Dental Pain ED Scripts Amoxicillin (Amoxicillin) 500 Mg Tablet 500 MG PO TID for 10 Days, #30 TAB Prov: JOSEFINA BOOGIE 06/09/22 Chlorhexidine Gluconate (Peridex) 0.12 % Mouthwash 15 ML MM TID for 10 Days, #473 ML Prov: JOSEFINA BOOGIE 06/09/22 ATTENDING PHYSICIAN NOTE: I was physically present as attending physician in the emergency department during the care of this patient, but I was not directly involved in the decision making or delivery of care for this patient. (DARRELL SERRATO MD) JOSEFINA BOOGIE Jun 09, 2022 11:52 DARRELL SERRATO MD Jun 11, 2022 00:04
[2022-06-09] MEDS ORDERED: AMOX500T2 PO (11:55)
[2022-06-09] MEDS ORDERED: CHLO473M4 MM (11:55)
[2022-06-09 12:03] VITALS: BP 132/79
== END 2022-06-09 12:03 | disposition home or self-care (01) ==
LOC: EDUNIT# 11:24 → ER 11:26
DX: K02.9 Dental caries, unspecified (principal); Z97.2 Presence of dental prosthetic device (complete) (partial); Z28.310 Unvaccinated for COVID-19
CPT/HCPCS: 99283

== ENCOUNTER 2022-06-13 04:21 | Outpatient (CLI) | payer MEDICAID ==
[~2022-06-13] VITALS: Ht 157.5 cm; Wt 80.7 kg
[~2022-06-13 04:21] MED LIST changes: +AMOX500T2 PO; +CHLO473M4 MM
[2022-06-13 04:46] LABS: BILIRUBIN,URINE NEGATIVE (NEGATIVE); CLARITY,URINE CLEAR; COLOR,URINE YELLOW; GLUCOSE, URINE (UA) NEGATIVE (NEGATIVE); KETONES,URINE NEGATIVE (NEGATIVE); LEUKOCYTE ESTERASE ,URINE TRACE (NEGATIVE); NITRITE,URINE NEGATIVE (NEGATIVE); PROTEIN,URINE NEGATIVE (NEGATIVE)
[2022-06-13 04:49] VITALS: BP 128/62
[2022-06-13 04:56] LABS: BACTERIA,URINE NEGATIVE /HPF; WBC,URINE RARE /HPF
--- NOTE | 2022-06-14 08:14 | Physician Query-Final Dx ---
RAN06/14/22 0814: Clinic Account Progress/Dx Physician Query: Please give diagnosis Please include # weeks gestation Date of Service Jun 13, 2022 at 04:21 NAVEEN RODGERS MD 06/14/22 2151: Clinic Account Progress/Dx DIAGNOSIS: Diagnosis Third trimester 38 weeks gestation Contractions without active labor RAN,OctJun 14, 2022 08:14 NAVEEN RODGERS MD Jun 14, 2022 21:51
== END 2022-06-13 05:20 | disposition home or self-care (01) ==
LOC: WSo 04:21 → LDRP 04:22 → WSo 05:20
PROVIDERS: ATTEND Family Medicine
DX: O47.1 False labor at or after 37 completed weeks of gestation (principal); Z3A.38 38 weeks gestation of pregnancy
CPT/HCPCS: 81000

== ENCOUNTER 2022-06-15 17:14 | Inpatient (IN) | payer MEDICAID ==
[~2022-06-15] VITALS: Ht 106 cm; Wt 80.5 kg
[2022-06-15] VITALS (26 sets, daily range): BP systolic 105–144; BP diastolic 53–88
[2022-06-15] MEDS ORDERED: D5 LR IV SOLUTION 1,000 ML IV ONE (18:29)
[2022-06-15] MEDS: D5 LR IV SOLUTION 1,000 ML IV SCH (18:35)
[2022-06-15 18:38] LABS: BASOPHILS % (AUTO) 0 % (0-10); EOSINOPHILS # (AUTO) 0.3 10^3/uL (0.0-0.3); EOSINOPHILS % (AUTO) 2 % (0-10); HEMATOCRIT 32 % (35-52); HEMOGLOBIN 10.9 g/dL (11.5-16.0); LYMPHOCYTES # (AUTO) 3.1 10^3/uL (1.0-4.0); LYMPHOCYTES % (AUTO) 19 % (12-44); MEAN CORPUSCULAR HEMOGLOBIN 30 pg (25-34); MEAN CORPUSCULAR HGB CONC 34 g/dL (32-36); MEAN CORPUSCULAR VOLUME 89 fL (80-99); MEAN PLATELET VOLUME 12.6 fL (9.0-12.2); MONOCYTES # (AUTO) 0.8 10^3/uL (0.0-1.0); MONOCYTES % (AUTO) 5 % (0-12); NEUTROPHILS # (AUTO) 11.6 10^3/uL (1.8-7.8); NEUTROPHILS % (AUTO) 73 % (42-75); PLATELET COUNT 185 10^3/uL (130-400); WHITE BLOOD COUNT 15.9 10^3/uL (4.3-11.0)
[2022-06-15 18:40] LABS: BILIRUBIN,URINE NEGATIVE (NEGATIVE); CLARITY,URINE CLOUDY; COLOR,URINE YELLOW; GLUCOSE, URINE (UA) NEGATIVE (NEGATIVE); KETONES,URINE NEGATIVE (NEGATIVE); LEUKOCYTE ESTERASE ,URINE 3+ (NEGATIVE); NITRITE,URINE NEGATIVE (NEGATIVE); PROTEIN,URINE 2+ (NEGATIVE)
[2022-06-15] MEDS ORDERED: OXYTOCIN PRE-MIX DRIP 500 ML IV SCH (18:45)
[2022-06-15] MEDS ORDERED: LIDOCAINE/EPI 2% 1:200,00 (XYLOCAINE) 10 ML VIAL INJ PRN (18:45)
[2022-06-15] MEDS ORDERED: MINERAL OIL 30 ML UDC TOP PRN (18:45)
[2022-06-15 18:51] LABS: AMPHETAMINE SCREEN, URINE NEGATIVE (NEGATIVE); BARBITURATE SCREEN URINE NEGATIVE (NEGATIVE); BENZODIAZEPINES SCREEN URINE NEGATIVE (NEGATIVE); CANNABINOID SCREEN, URINE POSITIVE (NEGATIVE); COCAINE SCREEN URINE NEGATIVE (NEGATIVE); METHADONE STAT NEGATIVE (NEGATIVE); OPIATE SCREEN URINE NEGATIVE (NEGATIVE); OXYCODONE STAT NEGATIVE (NEGATIVE); PROPOXYPHENE STAT NEGATIVE (NEGATIVE); TRICYCLIC ANTIDEPRESSANTS SCRE NEGATIVE (NEGATIVE)
[2022-06-15 18:53] LABS: BACTERIA,URINE LARGE /HPF; WBC,URINE 25-50 /HPF
[2022-06-15 18:57] LABS: EOSINOPHILS % (MANUAL) 3 %; LYMPHOCYTES % (MANUAL) 20 %; MONOCYTES % (MANUAL) 10 %; NEUTROPHILS % (MANUAL) 67 %; RBC MORPH NORMAL
[2022-06-15] MEDS ORDERED: BUTORPHANOL INJ 2 MG/ML (STADOL) VIAL ONE (19:55)
[2022-06-15] MEDS ORDERED: BUTORPHANOL INJ 2 MG/ML (STADOL) VIAL IV ONE (20:00)
[2022-06-15] MEDS ORDERED: fentaNYL 2 mcg/ml BUPIVA 0.125 100 ML ONE (20:02)
[2022-06-15] MEDS ORDERED: fentaNYL INJ 100 MCG/2 ML AMP ONE (20:17)
[2022-06-15] MEDS ORDERED: BUPIVACAINE 0.25% 30 ML (SENSORCAINE) VIAL ONE (20:17)
[2022-06-15] MEDS ORDERED: FERR-84 PO (20:21)
[2022-06-15] MEDS ORDERED: PREN1TAB79 PO (20:21)
[2022-06-15] MEDS ORDERED: NALOXONE 0.4 MG/ML 1 ML (NARCAN) VIAL IV PRN (20:30)
[2022-06-15] MEDS ORDERED: diphenhydrAMINE 50 MG/ML INJ (BENADRYL) IV PRN (20:30)
[2022-06-15] MEDS ORDERED: ONDANSETRON 4 MG/2 ML (SDV) Z0FRAN IV PRN (20:30)
[2022-06-15] MEDS ORDERED: LACTATED RINGERS 1,000 ML IV SCH (20:30)
[2022-06-15] MEDS ORDERED: LIDOCAINE 1% INJ 20 ML VIAL ONE (20:35)
[2022-06-15] MEDS: fentaNYL 2 mcg/ml BUPIVA 0.125 100 ML EPI SCH (20:48)
[2022-06-15] MEDS ORDERED: CATHETER FLUSH 10 ML SYR IV SCH (22:00)
[2022-06-16] VITALS (14 sets, daily range): BP systolic 100–145; BP diastolic 55–79
--- NOTE | 2022-06-16 00:35 | History & Physical-OB ---
OB - Chief Complaint & HPI Date/Time Date of Admission: Date of Admission: Jun 15, 2022 at 18:31 Date seen by a Provider: Jun 16, 2022 Time Seen by a Provider: 00:32 Chief Complaint/History OB-Reason for Admission/Chief: Rupture of Membranes Hx : 2 Hx Para: 1 Expected Date of Delivery: Jun 23, 2022 Gestational Age in Weeks: 39 Gestational Age in Days: 0 History of Labs O+, Ab neg, Rub Imm HIV/RPR/HepB/C NR GBS neg Allergies and Home Medications Allergies Coded Allergies: No Known Drug Allergies (Unverified , 11/16/10) Patient Home Medication List Home Medication List Reviewed: Yes Amoxicillin (Amoxicillin) 500 Mg Tablet, 500 MG PO TID Prescribed by: Ed Boogie on 06/09/22 115 Last Action: Last Taken Edited Chlorhexidine Gluconate (Peridex) 0.12 % Mouthwash, 15 ML MM TID Prescribed by: Ed Boogie on 06/09/22 115 Ferrous Sulfate (Iron) 325 Mg (65 Mg Iron) Tablet, 325 MG PO BID, (Reported) Entered as Reported by: SHANICE ARNOLD on 06/15/222020 Last Action: New Order Vit #76/Iron,Carb/FA (Pnv 29-1 Tablet) 1 Each Tablet, 1 EACH PO DAILY, (Reported) Entered as Reported by: LYNETTE MARSHALL on 08/26/17 1555 Vit W-Ca,Fe,FA(<1 mg) ( Vitamins) 27 Mg Iron-800 Mcg Tablet, 1 EACH PO DAILY, (Reported) Entered as Reported by: SHANICE ARNOLD on 06/15/222020 Last Action: New Order OB - History Hx of Present Care: Yes Ultrasounds: Normal mid trimester US Obstetrical Complications: None Medical Complications: None Obstetrical History Hx : 2 Hx Para: 1 Number of Living Children: 1 Delivery History Hx Blood Disorders: No Adverse Rxn to Tranfusion: No Patient Past Medical History Asthma Social History/Family History 2nd Hand Smoke Exposure: Yes Immunizations Influenza Vaccine Up-to-Date: No; Not Current Hepatitis A: Yes Hepatitis B: Yes Tetanus Booster (TDap): Less than 5yrs Rubella: immune RPR/VDRL: Negative GBS Status: Negative HBsAG: Negative OB - Admission Exam Physical Exam Vitals: Vital Signs 06/15/22 06/15/22 19:24 21:45 Temp 36.7 Pulse 70 Resp 20 B/P (MAP) 116/58 (77) Pulse Ox 98 O2 Delivery Room Air HEENT: NCAT Heart: Rhythm Normal Lungs: Clear Abdomen: Gravid Cervical Dilatation: 7cm Effacement: 75% Station: +1 Membranes: Ruptured Amniotic Fluid: Clear Heart Rate: 140's Accelerations: Accelerations Present Decelerations: No Decelerations Short Term Variability: Present Contractions on Admission: < 5 Minutes Apart Intensity: Firm Labs Laboratory Tests Test 06/15/22 18:08 06/15/22 18:36 Range/Units White Blood Count 15.9 H 4.3-11.0 10^3/uL Red Blood Count 3.64 L 3.80-5.11 10^6/uL Hemoglobin 10.9 L 11.5-16.0 g/dL Hematocrit 32 L 35-52 % Mean Corpuscular Volume 89 80-99 fL Mean Corpuscular Hemoglobin 30 25-34 pg Mean Corpuscular Hemoglobin Concent 34 32-36 g/dL Red Cell Distribution Width 14.2 10.0-14.5 % Platelet Count 185 130-400 10^3/uL Mean Platelet Volume 12.6 H 9.0-12.2 fL Immature Granulocyte % (Auto) 1 % Neutrophils (%) (Auto) 73 42-75 % Lymphocytes (%) (Auto) 19 12-44 % Monocytes (%) (Auto) 5 0-12 % Eosinophils (%) (Auto) 2 0-10 % Basophils (%) (Auto) 0 0-10 % Neutrophils # (Auto) 11.6 H 1.8-7.8 10^3/uL Lymphocytes # (Auto) 3.1 1.0-4.0 10^3/uL Monocytes # (Auto) 0.8 0.0-1.0 10^3/uL Eosinophils # (Auto) 0.3 0.0-0.3 10^3/uL Basophils # (Auto) 0.0 0.0-0.1 10^3/uL Immature Granulocyte # (Auto) 0.1 0.0-0.1 10^3/uL Neutrophils % (Manual) 67 % Lymphocytes % (Manual) 20 % Monocytes % (Manual) 10 % Eosinophils % (Manual) 3 % Blood Morphology Comment NORMAL Urine Color YELLOW Urine Clarity CLOUDY Urine pH 6.0 5-9 Urine Specific [place] 1.020 1.016-1.022 Urine Protein 2+ H NEGATIVE Urine Glucose (UA) NEGATIVE NEGATIVE Urine Ketones NEGATIVE NEGATIVE Urine Nitrite NEGATIVE NEGATIVE Urine Bilirubin NEGATIVE NEGATIVE Urine Urobilinogen 0.2 < = 1.0 MG/DL Urine Leukocyte Esterase 3+ H NEGATIVE Urine RBC (Auto) 1+ H NEGATIVE Urine RBC 5-10 H /HPF Urine WBC 25-50 H /HPF Urine Squamous Epithelial Cells 10-25 H /HPF Urine Renal Epithelial Cells NONE /HPF Urine Crystals NONE /LPF Urine Bacteria LARGE H /HPF Urine Casts NONE /LPF Urine Mucus LARGE H /LPF Urine Culture Indicated YES Urine Opiates Screen NEGATIVE NEGATIVE Urine Oxycodone Screen NEGATIVE NEGATIVE Urine Methadone Screen NEGATIVE NEGATIVE Urine Propoxyphene Screen NEGATIVE NEGATIVE Urine Barbiturates Screen NEGATIVE NEGATIVE Ur Tricyclic Antidepressants Screen NEGATIVE NEGATIVE Urine Phencyclidine Screen NEGATIVE NEGATIVE Urine Amphetamines Screen NEGATIVE NEGATIVE Urine Methamphetamines Screen NEGATIVE NEGATIVE Urine Benzodiazepines Screen NEGATIVE NEGATIVE Urine Cocaine Screen NEGATIVE NEGATIVE Urine Cannabinoids Screen POSITIVE H NEGATIVE OB - Assessment/Plan/Diagnosis Assessment Assessment: active labor, rupture of membranes Admission Dx Third Trimester 39 week gestation SROM Admission Status: Inpatient Order (span 2 midnights) Reason for Inpatient Admission: Labor and post care Plan Other Plan 22 yo @ 39.0 wga here with grossly SROM at home clear Plan - Augment labor with pitocin protocol - GBS neg - Epidural in place Copy Copies To 1: MALIKA JOSEPH MD, HOLLY R MD Jun 16, 2022 00:35
--- NOTE | 2022-06-16 01:54 | Labor Progress Note ---
Labor Progress Note Labor Progress Note Date Seen by Provider: Jun 16, 2022 Time Seen by Provider: 01:30 Subjective: Patient having alot of pelvic pain. Objective: /+1 with swollen anterior lip Assessment/Plan: January Chetan is a (22 /Para 2 / 1,Gestational Age (wks)39.0 here for active labor with SROM at home CEFM/TOCO Epidural not affective for pain control, called Dr Yu and updated her on labor course, called Anesthesia in to see if we can get better control of pain Pitocin off If pain unable to control will proceed with C/s Vitals - Labs Vital Signs - I&O Vital Signs Date Time Temp Pulse Resp B/P (MAP) Pulse Ox O2 Delivery O2 Flow Rate FiO2 06/16/22 00:30 76 20 100/69 (79) Room Air 06/16/22 00:15 74 20 120/56 (77) Room Air 06/16/22 00:00 79 20 122/67 (85) Room Air 06/15/22 23:45 68 20 116/56 (76) Room Air 06/15/22 23:30 83 20 144/71 (95) Room Air 06/15/22 23:10 74 20 105/53 (70) Room Air 06/15/22 23:00 81 20 119/59 (79) Room Air 06/15/22 22:45 78 20 116/58 (77) Room Air 06/15/22 22:27 79 20 112/55 (74) Room Air 06/15/22 22:00 72 20 117/54 (75) Room Air 06/15/22 21:45 70 20 116/58 (77) 98 Room Air 06/15/22 21:30 78 20 124/60 (81) 98 Room Air 06/15/22 21:24 80 20 124/62 (82) 97 Room Air 06/15/22 21:17 81 20 129/62 (84) 98 Room Air 06/15/22 21:12 82 20 117/57 (77) 98 Room Air 06/15/22 21:06 78 20 119/56 (77) 98 Room Air 06/15/22 21:03 80 20 123/59 (80) 98 Room Air 06/15/22 21:00 85 20 119/56 (77) 96 Room Air 06/15/22 20:56 87 20 122/64 (83) 97 Room Air 06/15/22 20:54 87 20 117/68 (84) 97 Room Air 06/15/22 20:51 89 20 113/59 (77) 97 Room Air 06/15/22 20:46 85 20 117/58 (77) 97 Room Air 06/15/22 20:43 89 20 117/62 (80) 96 Room Air 06/15/22 20:37 94 20 125/68 (87) 97 Room Air 06/15/22 20:34 91 20 121/60 (80) 97 Room Air 06/15/22 20:31 88 20 129/60 (83) 97 Room Air 06/15/22 20:25 95 20 131/88 (102) 98 Room Air 06/15/22 19:24 36.7 78 20 120/56 (77) 98 Room Air 06/15/22 17:38 36.8 102 20 120/65 (83) 98 Room Air 06/15/22 17:38 36.8 102 18 98 Room Air Labs Laboratory Tests 06/15/22 18:08: White Blood Count 15.9H, Red Blood Count 3.64L, Hemoglobin 10.9L, Hematocrit 32L , Mean Corpuscular Volume 89, Mean Corpuscular Hemoglobin 30, Mean Corpuscular Hemoglobin Concent 34, Red Cell Distribution Width 14.2, Platelet Count 185, Mean Platelet Volume 12.6H, Immature Granulocyte % (Auto) 1, Neutrophils (%) (Auto) 73, Lymphocytes (%) (Auto) 19, Monocytes (%) (Auto) 5, Eosinophils (%) (Auto) 2, Basophils (%) (Auto) 0, Neutrophils # (Auto) 11.6H, Lymphocytes # (Auto) 3.1, Monocytes # (Auto) 0.8, Eosinophils # (Auto) 0.3, Basophils # (Auto) 0.0, Immature Granulocyte # (Auto) 0.1, Neutrophils % (Manual) 67, Lymphocytes % (Manual) 20, Monocytes % (Manual) 10, Eosinophils % (Manual) 3, Blood Morphology Comment NORMAL 06/15/22 18:36: Urine Color YELLOW, Urine Clarity CLOUDY, Urine pH 6.0, Urine Specific [place] 1.020, Urine Protein 2+H, Urine Glucose (UA) NEGATIVE, Urine Ketones NEGATIVE, Urine Nitrite NEGATIVE, Urine Bilirubin NEGATIVE, Urine Urobilinogen 0.2, Urine Leukocyte Esterase 3+H, Urine RBC (Auto) 1+H, Urine RBC 5-10H, Urine WBC 25-50H, Urine Squamous Epithelial Cells 10-25H, Urine Renal Epithelial Cells NONE, Urine Crystals NONE, Urine Bacteria LARGEH, Urine Casts NONE, Urine Mucus LARGEH, Urine Culture Indicated YES, Urine Opiates Screen NEGATIVE, Urine Oxycodone Screen NEGATIVE, Urine Methadone Screen NEGATIVE, Urine Propoxyphene Screen NEGATIVE, Urine Barbiturates Screen NEGATIVE, Ur Tricyclic Antidepressants Screen NEGATIVE, Urine Phencyclidine Screen NEGATIVE, Urine Amphetamines Screen NEGATIVE, Urine Methamphetamines Screen NEGATIVE, Urine Benzodiazepines Screen NEGATIVE, Urine Cocaine Screen NEGATIVE, Urine Cannabinoids Screen POSITIVE MALIKA JOSEPH MD Jun 16, 2022 01:54
[2022-06-16] MEDS ORDERED: LIDOCAINE PF 2% 5 ML (XYLOCAINE) VIAL ONE (02:23)
[2022-06-16] MEDS ORDERED: fentaNYL INJ 100 MCG/2 ML AMP ONE (02:42)
--- NOTE | 2022-06-16 03:01 | OB Labor & Delivery Record ---
Vag Delivery Note Vag Delivery Note Date of Delivery: 06/16/22 Preoperative Diagnosis: Shagufta Benton is a (22 /Para 2 / 1,Gestational Age (wks)39.0 here in active labor after SROM at home Postoperative Diagnosis: Same Surgeon: MALIKA JOSEPH MD Hides Soaker: None Anesthesia: Epidural Delivery Type: @ 0244 Findings: Viable male infant, apgars 9/9, weight 6#6, 2905 Lacerations: None Intact placenta with 3 vessel cord. No nuchal cord, body cord or shoulder dystocia Estimated Blood Loss: 100 ml Complications: None Condition: Stable Description of Procedure: The patient is a 22 year old female who presented in active labor with SROM. She was admitted and informed consent was obtained. Her labor course was unremarkable. She progressed to complete dilatation and began to push. She was then set up for delivery. The 's head was delivered atraumatically in the DYLAN position. The shoulders and remainder of the infant's body were then delivered without difficulty. Upon delivery, the head was held below the level of the perineum and the mouth and nares were bulb suctioned. The cord was doubly clamped and cut by FOB after 3 min delay and the was handed off to the pediatric staff. An intact placenta with 3-vessel cord delivered via Davi and there was found to be minimal bleeding.~ Vigorous fundal massage was performed and the fundus was found to be firm. IV oxytocin was given. Examination of the vagina and perineum revealed no lacerations that required repair. Following the repair, sponge, instrument and needle counts were correct. Mom and baby were both in stable condition in the labor suite. Vitals - Labs Vital Signs - I&O Vital Signs Date Time Temp Pulse Resp B/P (MAP) Pulse Ox O2 Delivery O2 Flow Rate FiO2 06/16/22 00:30 76 20 100/69 (79) Room Air 06/16/22 00:15 74 20 120/56 (77) Room Air 06/16/22 00:00 79 20 122/67 (85) Room Air 06/15/22 23:45 68 20 116/56 (76) Room Air 06/15/22 23:30 83 20 144/71 (95) Room Air 06/15/22 23:10 74 20 105/53 (70) Room Air 06/15/22 23:00 81 20 119/59 (79) Room Air 06/15/22 22:45 78 20 116/58 (77) Room Air 06/15/22 22:27 79 20 112/55 (74) Room Air 06/15/22 22:00 72 20 117/54 (75) Room Air 06/15/22 21:45 70 20 116/58 (77) 98 Room Air 06/15/22 21:30 78 20 124/60 (81) 98 Room Air 06/15/22 21:24 80 20 124/62 (82) 97 Room Air 06/15/22 21:17 81 20 129/62 (84) 98 Room Air 06/15/22 21:12 82 20 117/57 (77) 98 Room Air 06/15/22 21:06 78 20 119/56 (77) 98 Room Air 06/15/22 21:03 80 20 123/59 (80) 98 Room Air 06/15/22 21:00 85 20 119/56 (77) 96 Room Air 06/15/22 20:56 87 20 122/64 (83) 97 Room Air 06/15/22 20:54 87 20 117/68 (84) 97 Room Air 06/15/22 20:51 89 20 113/59 (77) 97 Room Air 06/15/22 20:46 85 20 117/58 (77) 97 Room Air 06/15/22 20:43 89 20 117/62 (80) 96 Room Air 06/15/22 20:37 94 20 125/68 (87) 97 Room Air 06/15/22 20:34 91 20 121/60 (80) 97 Room Air 06/15/22 20:31 88 20 129/60 (83) 97 Room Air 06/15/22 20:25 95 20 131/88 (102) 98 Room Air 06/15/22 19:24 36.7 78 20 120/56 (77) 98 Room Air 06/15/22 17:38 36.8 102 20 120/65 (83) 98 Room Air 06/15/22 17:38 36.8 102 18 98 Room Air Labs Laboratory Tests 06/15/22 18:08: White Blood Count 15.9H, Red Blood Count 3.64L, Hemoglobin 10.9L, Hematocrit 32L , Mean Corpuscular Volume 89, Mean Corpuscular Hemoglobin 30, Mean Corpuscular Hemoglobin Concent 34, Red Cell Distribution Width 14.2, Platelet Count 185, Mean Platelet Volume 12.6H, Immature Granulocyte % (Auto) 1, Neutrophils (%) (Auto) 73, Lymphocytes (%) (Auto) 19, Monocytes (%) (Auto) 5, Eosinophils (%) (Auto) 2, Basophils (%) (Auto) 0, Neutrophils # (Auto) 11.6H, Lymphocytes # (A uto) 3.1, Monocytes # (Auto) 0.8, Eosinophils # (Auto) 0.3, Basophils # (Auto) 0.0, Immature Granulocyte # (Auto) 0.1, Neutrophils % (Manual) 67, Lymphocytes % (Manual) 20, Monocytes % (Manual) 10, Eosinophils % (Manual) 3, Blood Morphology Comment NORMAL 06/15/22 18:36: Urine Color YELLOW, Urine Clarity CLOUDY, Urine pH 6.0, Urine Specific [place] 1.020, Urine Protein 2+H, Urine Glucose (UA) NEGATIVE, Urine Ketones NEGATIVE, Urine Nitrite NEGATIVE, Urine Bilirubin NEGATIVE, Urine Urobilinogen 0.2, Urine Leukocyte Esterase 3+H, Urine RBC (Auto) 1+H, Urine RBC 5-10H, Urine WBC 25-50H, Urine Squamous Epithelial Cells 10-25H, Urine Renal Epithelial Cells NONE, Urine Crystals NONE, Urine Bacteria LARGEH, Urine Casts NONE, Urine Mucus LARGEH, Urine Culture Indicated YES, Urine Opiates Screen NEGATIVE, Urine Oxycodone Screen NEGATIVE, Urine Methadone Screen NEGATIVE, Urine Propoxyphene Screen NEGATIVE, Urine Barbiturates Screen NEGATIVE, Ur Tricyclic Antidepressants Screen NEGATIVE, Urine Phencyclidine Screen NEGATIVE, Urine Amphetamines Screen NEGATIVE, Urine Methamphetamines Screen NEGATIVE, Urine Benzodiazepines Screen NEGATIVE, Urine Cocaine Screen NEGATIVE, Urine Cannabinoids Screen POSITIVEH MALIKA JOSEPH MD Jun 16, 2022 03:01
[2022-06-16] MEDS ORDERED: TETANUS,DIPTH,PERTUSS P/F (BOOSTRIX) 0.5 ML VIAL IM ONE (03:15)
[2022-06-16] MEDS ORDERED: BENZOCAINE/MENTHOL (DERMOPLAST) 56 ML CAN TP PRN (03:15)
[2022-06-16] MEDS ORDERED: WITCH HAZEL(TUCKS) 40 EA JAR TOP PRN (03:15)
[2022-06-16] MEDS ORDERED: OXYTOCIN (PITOCIN) 10 UNIT/ML VIAL IM ONE (03:30)
[2022-06-16] MEDS ORDERED: OXYTOCIN (PITOCIN) 10 UNIT/ML VIAL ONE (03:31)
[2022-06-16] MEDS: IBUPROFEN 600 MG (MOTRIN) TAB PO SCH ×4 (04:00→22:25)
[2022-06-16] MEDS: ACETAMINOPHEN 500 MG TAB (TYLENOL) PO SCH ×4 (04:00→22:25)
[2022-06-16] MEDS ORDERED: CATHETER FLUSH 10 ML SYR IV SCH (06:00)
[2022-06-16] MEDS: PRENATAL VITAMIN 1 EA TAB PO SCH (08:22)
[2022-06-16] MEDS: DOCUSATE SODIUM 100 MG (COLACE) CAP PO SCH ×2 (08:23→22:25)
--- NOTE | 2022-06-16 12:55 | Anesthesia-Regional Post-Op ---
Regional Patient Condition Mental Status: Alert, Oriented x3 Circulation: Same as Pre-Op Headache: Absent Sensation: Full Recovery Motor Block: Absent Post Op Complications Complications None Follow Up Care/Instructions Patient Instructions None needed. Anesthesia/Patient Condition Patient is doing well, no complaints, stable vital signs, no apparent adverse anesthesia problems. No complications reported per nursing. TERESITA DILLON CRNA Jun 16, 2022 12:55
[2022-06-16] MEDS: D5 LR IV SOLUTION 1,000 ML IV SCH (23:52)
[2022-06-16] MEDS: fentaNYL 2 mcg/ml BUPIVA 0.125 100 ML EPI SCH (23:55)
[2022-06-17 01:00] VITALS: BP 126/76
[2022-06-17 04:28] VITALS: BP 96/52
[2022-06-17] MEDS: IBUPROFEN 600 MG (MOTRIN) TAB PO SCH (04:28)
[2022-06-17] MEDS: ACETAMINOPHEN 500 MG TAB (TYLENOL) PO SCH (04:28)
[2022-06-17 07:00] LABS: BASOPHILS % (AUTO) 0 % (0-10); EOSINOPHILS # (AUTO) 0.3 10^3/uL (0.0-0.3); EOSINOPHILS % (AUTO) 2 % (0-10); HEMATOCRIT 29 % (35-52); HEMOGLOBIN 9.7 g/dL (11.5-16.0); LYMPHOCYTES % (AUTO) 21 % (12-44); MEAN CORPUSCULAR HEMOGLOBIN 30 pg (25-34); MEAN CORPUSCULAR HGB CONC 34 g/dL (32-36); MEAN CORPUSCULAR VOLUME 89 fL (80-99); MEAN PLATELET VOLUME 12.2 fL (9.0-12.2); MONOCYTES # (AUTO) 0.7 10^3/uL (0.0-1.0); MONOCYTES % (AUTO) 5 % (0-12); NEUTROPHILS # (AUTO) 10.2 10^3/uL (1.8-7.8); NEUTROPHILS % (AUTO) 71 % (42-75); PLATELET COUNT 183 10^3/uL (130-400); WHITE BLOOD COUNT 14.3 10^3/uL (4.3-11.0)
[2022-06-17] MEDS: PRENATAL VITAMIN 1 EA TAB PO SCH (07:38)
[2022-06-17] MEDS: DOCUSATE SODIUM 100 MG (COLACE) CAP PO SCH (07:38)
--- NOTE | 2022-06-17 08:24 | Discharge Summary ---
Diagnosis/Chief Complaint Date of Admission Jun 15, 2022 at 18:31 Date of Discharge 06/17/22 Admission Diagnosis Admission Diagnosis Third Trimester 39 week gestation Anemia in Discharge Diagnosis Uncomplicated Post anemia with acute blood loss Discharge Summary-Simple/Stand Procedures Epidural placement Uncomplicated Discharge Physical Examination Allergies: Coded Allergies: No Known Drug Allergies (Unverified , 11/16/10) Vitals & I&Os Vital Sign - Last 12Hours Date Time Temp Pulse Resp B/P (MAP) Pulse Ox O2 Delivery O2 Flow Rate FiO2 06/17/22 04:28 36.2 62 18 96/52 (67) 98 Room Air General Appearance: Alert, Oriented X3, Cooperative, No Acute Distress HEENT: Mucous Memb Moist/[place] Respiratory: Clear to Auscultation, Normal Air Movement Cardiovascular: Regular Rate, No Murmurs Abdominal: Normal Bowel Sounds, Soft, No Tenderness, Other (Fundus firm and below umbilicus) Extremities: No Edema, No Tenderness/Swelling Neuro: Normal Speech Psych/Mental Status: Mental Status NL, Mood NL Hospital Course See final discharge diagnosis. Discussion & Recommendations 22 yo G2 now P2 delivered term male via uncomplicated @ 39.0 wga. Discharge Condition at discharge stable Instructions to patient/family Please see electronic discharge instructions given to patient. Discharge Medications Reviewed and agree with Discharge Medication list on patient's Discharge Instruction sheet MALIKA JOSEPH MD Jun 17, 2022 08:24
[2022-06-17] MEDS ORDERED: DOCU100C37 PO (08:26)
[2022-06-17] MEDS ORDERED: IBUP-844 PO (08:26)
[2022-06-17] MEDS ORDERED: FERR-84 PO (08:26)
--- NOTE | 2022-06-17 08:26 | Discharge Summary ---
Discharge [facility] Reconcile Patient Problems Problems Reviewed?: Yes Discharge Medications New, Converted or Re-Newed RX: Transmitted to Pharmacy New Medications: Docusate Sodium (Docusate Sodium) 100 Mg Capsule 100 MG PO BID, #28 CAP Ibuprofen (Ibu) 600 Mg Tablet 600 MG PO Q6H, #90 TAB Changed Medications: Ferrous Sulfate (Iron) 325 Mg (65 Mg Iron) Tablet 325 MG PO DAILY, #30 TAB (Changed from: BID) Continued Medications: Vit W-Ca,Fe,FA(<1 mg) ( Vitamins) 27 Mg Iron-800 Mcg Tablet 1 EACH PO DAILY, TAB Discontinued Medications: Amoxicillin (Amoxicillin) 500 Mg Tablet 500 MG PO TID for 10 Days, #30 TAB Chlorhexidine Gluconate (Peridex) 0.12 % Mouthwash 15 ML MM TID for 10 Days, #473 ML Vit #76/Iron,Carb/FA (Pnv 29-1 Tablet) 1 Each Tablet 1 EACH PO DAILY, TAB Patient Instructions Goal/Follow Up Appt: [address] Gomez Activity & Diet Discharge Diet: No Restrictions Activity as Tolerated: Yes MALIKA GOMEZ MD Jun 17, 2022 08:26
[2022-06-17 08:44] VITALS: BP 112/69
[2022-06-17 09:50] VITALS: BP 112/69
--- NOTE | 2022-06-18 12:45 | CONSULTATION REPORT ---
DATE OF SERVICE: PROGRESS NOTE Patient of Dr. Gomez that would had delivered the morning of 06/15/2022. Dr. Gomez called and requested consideration for section for arrest of dilation at 9 cm. G2, P1 with previous vaginal delivery with an inadequate epidural who has been 9 cm for 2 hours and felt to have cervical swelling. No complications during the . The patient is in spontaneous labor, not requiring any augmentation. Upon arrival, heart tones are reassuring. Vitals are also reassuring, and the patient is thrashing about in pain. Anesthesia had evaluated and said there was no additional bolus for the patient. Introduced myself to the patient and gained consent to do an exam and upon exam was found to be complete +3 and occiput posterior. She was set up in lithotomy and Dr. Gmoez had a vaginal delivery in two contractions. I appreciate participating in this patient's care. However, not continue to follow her inpatient. We are available if needed. So, please do not hesitate to contact me or the other OB technology applications teacher. Job ID: [id number] DocumentID: [id number] Dictated Date: 06/18/2022 09:26:00 Office Rn Date: 06/18/2022 11:59:32 Dictated By: Florence uY MD
== END 2022-06-17 09:50 | disposition home or self-care (01) | DRG 806 ==
LOC: WSo 17:14 → LDRP 17:20 → WSo 19:42 → LDRP 06-16 09:43
PROVIDERS: ADMIT Family Medicine; ATTEND Family Medicine
PROC: 10E0XZZ Delivery of Products of Conception, External Approach (ICD-10-PCS; principal; 2022-06-16)
DX: O99.02 Anemia complicating childbirth (principal); D62 Acute posthemorrhagic anemia; Z37.0 Single live birth; Z3A.39 39 weeks gestation of pregnancy
CPT/HCPCS: 36415; 80306; 81000; 85007; 85025; 85027; 86850; 86900; 86901; 87088; 99212

== ENCOUNTER 2022-09-03 14:01 | Emergency (ER) | payer MEDICAID ==
[~2022-09-03 14:01] MED LIST changes: +DOCU100C37 PO; +FERR-84 PO; +IBUP-844 PO; +PREN1TAB79 PO
== END 2022-09-03 14:19 | disposition left against medical advice (07) ==
LOC: EDUNIT# 14:01 → ER 14:03
DX: K08.89 Other specified disorders of teeth and supporting structures (principal); H92.09 Otalgia, unspecified ear